=== PATIENT | female | born 1990 | race Caucasian/White ===

== ENCOUNTER 2021-02-25 14:54 | Emergency (ER) | payer OTHER ==
[~2021-02-25] VITALS: Ht 165.1 cm; Wt 65.8 kg
[2021-02-25 15:32] VITALS: BP 112/76
--- NOTE | 2021-02-25 15:35 | NUR ---
TO ER BED 1, C/O RIGHT ANKLE PAIN/SWELLING,MISSED A STEP AT [address] OF HER HOUSE, AAOX4, BREATHING EVEN AND NON LABORED
--- NOTE | 2021-02-25 15:39 | NUR ---
DR COLEMAN AT BEDSIDE FOR EVAL
--- NOTE | 2021-02-25 15:45 | NUR ---
PROVIDED COLD PACK ON R ANKLE.
[2021-02-25] MEDS ORDERED: KETOROLAC TROMETHAMINE INJ 30 MG/ML VIAL ONE (15:59)
[2021-02-25] MEDS ORDERED: KETOROLAC TROMETHAMINE INJ 30 MG/ML VIAL IM ONE (16:00)
[2021-02-25] MEDS ORDERED: IBUP-1957 PO (16:27)
--- NOTE | 2021-02-25 16:41 | NUR ---
Patient discharged to home in stable condition. Written and verbal after care instructions given. Patient verbalizes understanding of instruction.
== END 2021-02-25 16:41 | disposition home or self-care (01) ==
LOC: ER 14:57
DX: S93.491A Sprain of other ligament of right ankle, initial encounter (principal); Z79.899 Other long term (current) drug therapy; X58.XXXA Exposure to other specified factors, initial encounter; Y93.89 Activity, other specified; Y92.89 Other specified places as the place of occurrence of the external cause; Y99.8 Other external cause status
CPT/HCPCS: 29515; 73610; 96372; 99283; J1885